=== PATIENT | female | born 1965 | race African-American/Black ===

== ENCOUNTER 2021-07-28 09:13 | Emergency (ER) | payer MEDICAID ==
[~2021-07-28] VITALS: Ht 167.6 cm; Wt 50.0 kg
[2021-07-28] MEDS ORDERED: ACETAMINOPHEN 325 MG TABLET PO ONE (09:45)
[2021-07-28] MEDS ORDERED: LIDOCAINE/PF 1% 5 ML VIAL ONE (11:28)
[2021-07-28] MEDS ORDERED: LIDOCAINE 1% 10 ML VIAL ONE (11:29)
[2021-07-28] MEDS ORDERED: LIDOCAINE 1% 10 ML VIAL PERC ONE (11:30)
[2021-07-28] MEDS ORDERED: SULF-261 PO (12:00)
[2021-07-28 12:19] VITALS: BP 95/63
== END 2021-07-28 12:37 | disposition home or self-care (01) ==
LOC: EMS 09:16
DX: L02.415 Cutaneous abscess of right lower limb (principal); L03.115 Cellulitis of right lower limb; F17.210 Nicotine dependence, cigarettes, uncomplicated
CPT/HCPCS: 10060; 73610; 99283; J2001; J3490

== ENCOUNTER 2021-10-09 10:32 | Emergency (ER) | payer MEDICAID ==
[~2021-10-09] VITALS: Ht 167.6 cm; Wt 50.0 kg
[~2021-10-09 10:32] MED LIST: HYDR-4723 PO; LEVO750T68 PO
[2021-10-09 11:22] VITALS: BP 143/72
== END 2021-10-09 12:06 | disposition home or self-care (01) ==
LOC: EMS 10:32
DX: L02.416 Cutaneous abscess of left lower limb (principal); Z48.00 Encounter for change or removal of nonsurgical wound dressing; F17.210 Nicotine dependence, cigarettes, uncomplicated; Z79.899 Other long term (current) drug therapy
CPT/HCPCS: 99281; Z7502

== ENCOUNTER 2022-09-18 03:45 | Emergency (ER) | payer MEDICAID, OTHER ==
[~2022-09-18] VITALS: Ht 167.6 cm; Wt 53.0 kg
[2022-09-18] MEDS ORDERED: CloNIDine HCL 0.2 MG TABLET PO ONE (04:15)
[2022-09-18 04:45] LABS: BASOPHILS % (AUTO) 1.1 % (0.0-2.0); HEMATOCRIT 44.7 % (36-46); HEMOGLOBIN 14.8 g/dL (12.0-16.0); LYMPHOCYTES # (AUTO) 2.1 K/uL (1.0-4.8); LYMPHOCYTES % (AUTO) 28.2 % (22.0-44.0); MEAN CORPUSCULAR HEMOGLOBIN 30.8 pg (26.0-34.0); MEAN CORPUSCULAR VOLUME 93 fL (80-100); MONOCYTES # (AUTO) 0.7 K/uL (0.1-1.0); MONOCYTES % (AUTO) 9.9 % (2.0-9.0); NEUTROPHILS # (AUTO) 4.4 K/uL (1.8-7.7); NEUTROPHILS % (AUTO) 59.8 % (40.0-70.0); PLATELET COUNT (AUTO) 356 K/uL (150-450); RED CELL DISTRIBUTION WIDTH 14.1 % (11.5-14.5)
[2022-09-18 04:58] LABS: ALANINE AMINOTRANSFERASE 22 U/L (12-78); ALKALINE PHOSPHATASE 85 U/L (46-116); ANION GAP 12 mmol/L (8-16); ASPARTATE AMINOTRANSFERASE 18 U/L (15-37); BILIRUBIN,TOTAL 0.4 mg/dL (0.1-1.0); CALCIUM, TOTAL 9.3 mg/dL (8.8-10.5); CARBON DIOXIDE 25 mmol/L (22-29); CHLORIDE 105 mmol/L (98-107); CREATINE KINASE, TOTAL ONLY 109 U/L (26-192); GLOMERULAR FILTR. RATE CALC > 60 mL/min (>60); GLUCOSE,RANDOM 109 mg/dL (70-110); SODIUM SERUM 142 mmol/L (136-145); TOTAL PROTEIN, SERUM 7.4 g/dL (6.4-8.2); UREA NITROGEN, BLOOD 13 mg/dL (7-18)
[2022-09-18 04:59] LABS: POTASSIUM 2.7 mmol/L (3.5-5.1)
[2022-09-18 05:04] LABS: B-TYPE NATRIURETIC PEPTIDE 9 pg/mL (0-100)
[2022-09-18] MEDS ORDERED: POTASSIUM CHLORIDE 20 MEQ ER TABLET PO ONE ×2 (05:15)
[2022-09-18 05:41] LABS: APPEARANCE,URINE HAZY (CLEAR); BILIRUBIN,URINE NEGATIVE (NEGATIVE); GLUCOSE, URINE (UA) NEGATIVE (NEGATIVE); KETONES,URINE NEGATIVE (NEGATIVE); LEUKOCYTE ESTERASE ,URINE TRACE (NEGATIVE); NITRATE,URINE POSITIVE (NEGATIVE); OCCULT BLOOD,URINE NEGATIVE (NEGATIVE); PROTEIN,URINE NEGATIVE (NEGATIVE); SPECIFIC GRAVITIY, URINE 1.011 (1.003-1.030); UROBILINOGEN,URINE <=1.0 mg/dL (<=1.0)
[2022-09-18 05:48] LABS: AMPHET/METH SCREEN,URINE NEGATIVE (NEGATIVE); BACTERIA,URINE Many /HPF (None Seen); BARBITURATE SCREEN, URINE NEGATIVE (NEGATIVE); BENZODIAZEPINES SCREEN,URINE NEGATIVE (NEGATIVE); CANNABINOID SCREEN,URINE POSITIVE (NEGATIVE); COCAINE SCREEN,URINE POSITIVE (NEGATIVE); METHADONE SCREEN, URINE NEGATIVE (NEGATIVE); OPIATE SCREEN,URINE NEGATIVE (NEGATIVE); PHENCYCLIDINE SCREEN,URINE POSITIVE (NEGATIVE); RBC,URINE None Seen /HPF (0-2); SQUAMOUS EPITHELIAL CELL,UR None Seen /LPF (None Seen)
[2022-09-18] MEDS: POTASSIUM CHL 10 MEQ/WATER 50 ML IV SCH ×2 (06:02→06:25)
[2022-09-18 07:25] VITALS: BP 127/80
== END 2022-09-18 08:10 | disposition home or self-care (01) ==
LOC: EMS 03:46
DX: F14.10 Cocaine abuse, uncomplicated (principal); E87.6 Hypokalemia; I10 Essential (primary) hypertension; F17.210 Nicotine dependence, cigarettes, uncomplicated
CPT/HCPCS: 99285; 96365; 71045; 80053; 82550; 83880; 84484; 85025; 85379; 36415; 87086; 87186; 93005; 81001; 80307 ×2; G0480; J3480